=== PATIENT | female | born 1975 | race Caucasian/White ===

== ENCOUNTER 2023-12-15 06:42 | Day surgery (SDC) | payer OTHER ==
[~2023-12-15] VITALS: Ht 182.9 cm; Wt 65.8 kg
[~2023-12-15 06:42] MED LIST: MULTI VITAMIN1 EACH PO
[2023-12-15] MEDS ORDERED: CEFOXITIN SODIUM 2,000 MG VIAL IV ONE ×2 (12:29→15:15)
[2023-12-15] MEDS ORDERED: BUPIVACAINE HCL/PF 0.5% 30ML ML ONE (15:10)
[2023-12-15] MEDS ORDERED: VISTASEAL DUAL APPICATOR 1 EACH APPL TOP ONE ×2 (16:36→17:30)
[2023-12-15] MEDS ORDERED: THROMBIN,HU/FIBRINOGEN/CALCIUM 10 ML SYRINGE TOP ONE ×2 (16:36→17:30)
== END 2023-12-15 22:50 | disposition home or self-care (01) ==
LOC: CIR.AMB 06:42
PROVIDERS: ATTEND Obstetrics & Gynecology Gynecologic Oncology
DX: N83.291 Other ovarian cyst, right side (principal); N85.8 Other specified noninflammatory disorders of uterus

== ENCOUNTER 2023-12-18 07:29 | Emergency (ER) | payer OTHER ==
[~2023-12-18] VITALS: Ht 182.9 cm; Wt 65.8 kg
[2023-12-18] MEDS ORDERED: ASA81 MG PO (07:34)
[2023-12-18] MEDS ORDERED: KELP150 MCG PO (07:35)
[2023-12-18] MEDS ORDERED: CEPHALEXIN750 MG (07:36)
[2023-12-18] MEDS ORDERED: COLACE100 MG (07:36)
[2023-12-18] MEDS ORDERED: TRAMADOL HCL E100 M1 (07:37)
[2023-12-18 09:07] LABS: CALCIUM 8.9 mg/dL (8.5-10.1); CREATININE SERUM 0.57 mg/dL (0.55-1.02); GFR 112.73; POTASSIUM 3.95 mEq/L (3.5-5.1)
[2023-12-18 09:20] LABS: PH,URINE 6.5 (5.0-8.0); URINE APPEARANCE Clear; URINE BILIRRUBIN Negative (NEGATIVE); URINE BLOOD Large; URINE COLOR Yellow; URINE GLUCOSE Negative (NEGATIVE); URINE LEUKOCYTE Negative; URINE NITRATE Negative; URINE PROTEIN Negative (NEGATIVE); URINE UROBILINOGEN 0.2 E.U./dl
[2023-12-18 09:22] LABS: URINE RBC 26.4 uL (0.0-20.8)
[2023-12-18 09:28] LABS: URINE EPITHELIAL CELLS 0.9 uL (0.0-38.8); URINE WBC 1.5 uL (0.0-23.2)
[2023-12-18 09:47] LABS: HEMATOCRIT 34.4 % (36.0-45.00); MEAN CELL VOLUME 87.3 fL (80.00-100.00); MEAN CORPUSCULAR HEMOGLOBIN 30.6 pg (27.00-32.0); PLATELET COUNT 158 K/uL (150-450); RED BLOOD COUNT 3.94 M/uL (4.00-6.00); RED CELL DISTRIBUTION WIDTH 13.9 % (11.5-14.5)
== END 2023-12-18 11:22 | disposition home or self-care (01) ==
LOC: ER 07:29
PROVIDERS: General Practice
DX: N92.6 Irregular menstruation, unspecified (principal)